=== PATIENT | male | born 1980 | race Caucasian/White ===

== ENCOUNTER 2020-01-07 23:42 | Emergency (ER) | payer SELFPAY ==
[~2020-01-07] VITALS: Ht 182.9 cm; Wt 86.2 kg
--- NOTE | 2020-01-07 23:58 | NUR ---
BIBRA FOR ETOH FROM HOME. PALCED ON MONITOR AND PULSE OX. NO ACUTE DISTRESS NOTED. VITALS STABLE.
[2020-01-08] MEDS ORDERED: IV NS 0.9% 1,000 ML BAG IV ONE (00:30)
--- NOTE | 2020-01-08 01:09 | NUR ---
PT REMAINS ASLEEP. VSS.
[2020-01-08 05:39] VITALS: BP 121/73
--- NOTE | 2020-01-08 05:39 | NUR ---
Patient discharged to home in stable condition. Written and verbal after care instructions given. Patient verbalizes understanding of instruction. IV removed. Catheter intact and site benign. Pressure and 4x4 applied to site. No bleeding noted. Pt ambulated with steady gait. Picked up by .
== END 2020-01-08 05:39 | disposition home or self-care (01) ==
LOC: ER 23:44
DX: F10.129 Alcohol abuse with intoxication, unspecified (principal); R55 Syncope and collapse; Y90.9 Presence of alcohol in blood, level not specified
CPT/HCPCS: 82962; 96360; 99283; J7030

== ENCOUNTER 2022-11-04 19:44 | Emergency (ER) | payer OTHER ==
[~2022-11-04] VITALS: Ht 182.9 cm; Wt 90.7 kg
--- NOTE | 2022-11-04 20:16 | NUR ---
RN NOTE [id number] from home for back pain/neck/R shoulder, dryer fell on his back. PT IN BED, RESTING. A/O X 4, ABLE TO VERBALIZE NEEDS. NO S/SX OF ACUTE RESPI DISTRESS NOTED AT THIS TIME. WILL CONTINUE TO MONITOR. AWAITING MD ORDERS.
[2022-11-04] MEDS ORDERED: HYDROMORPHONE 1 MG/1 ML DISP.SYRIN ONE (20:39)
[2022-11-04] MEDS ORDERED: CYCLOBENZAPRINE 10 MG TABLET ONE (20:39)
--- NOTE | 2022-11-04 20:52 | NUR ---
RN NOTE DILAUDID AND FLEXERIL GIVEN ORDERED.
--- NOTE | 2022-11-04 20:57 | NUR ---
RN NOTE PT TAKEN TO CT VIA JONN.
[2022-11-04] MEDS ORDERED: CYCLOBENZAPRINE 10 MG TABLET PO ONE (21:00)
[2022-11-04] MEDS ORDERED: HYDROMORPHONE 1 MG/1 ML DISP.SYRIN IM ONE (21:00)
[2022-11-04] MEDS ORDERED: HYDROMORPHONE INJ 2 MG/ML DISP.SYRIN ONE (21:30)
[2022-11-04] MEDS ORDERED: HYDROMORPHONE INJ 2 MG/ML DISP.SYRIN IM ONE (21:30)
--- NOTE | 2022-11-04 21:42 | NUR ---
Rico dennison in [facility] - 11/04/22 at 2142 by FUNMI SLY ACEVES
--- NOTE | 2022-11-04 21:44 | NUR ---
RN NOTE CERVICAL COLLAR IN PLACE.
[2022-11-04] MEDS ORDERED: CYCL10TA9 PO (23:21)
[2022-11-04] MEDS ORDERED: IBUP-1955 PO (23:21)
[2022-11-04] MEDS ORDERED: HYDR-3976 PO (23:21)
[2022-11-04] MEDS ORDERED: LIDO30AD10 TP (23:21)
[2022-11-04] MEDS ORDERED: LORAZEPAM 0.5 MG TABLET PO ONE (23:30)
[2022-11-04] MEDS ORDERED: LORAZEPAM 0.5 MG TABLET ONE (23:31)
[2022-11-04 23:43] VITALS: BP 135/87
== END 2022-11-04 23:44 | disposition home or self-care (01) ==
LOC: ER 19:46
DX: S16.1XXA Strain of muscle, fascia and tendon at neck level, initial encounter (principal); S30.0XXA Contusion of lower back and pelvis, initial encounter; S09.8XXA Other specified injuries of head, initial encounter; Z79.899 Other long term (current) drug therapy; W20.8XXA Other cause of strike by thrown, projected or falling object, initial encounter; Y93.89 Activity, other specified; Y92.89 Other specified places as the place of occurrence of the external cause; Y99.8 Other external cause status
CPT/HCPCS: 99285; 72125; 96372 ×2; 70450; 72131; 72128; L0172; J1170 ×2